=== PATIENT | female | born 1995 | race Two or more races ===

== ENCOUNTER 2019-11-23 16:29 | Emergency (ER) | payer OTHER ==
[~2019-11-23] VITALS: Ht 165.1 cm; Wt 61.8 kg
[2019-11-23 16:31] VITALS: BP 124/77
== END 2019-11-23 18:30 | disposition home or self-care (01) ==
LOC: EMS 16:31
DX: Z03.818 Encounter for observation for suspected exposure to other biological agents ruled out (principal)
CPT/HCPCS: 99283; U0003

== ENCOUNTER 2019-12-12 09:50 | Emergency (ER) | payer OTHER ==
[~2019-12-12] VITALS: Ht 165.1 cm; Wt 61.4 kg
[2019-12-12 09:51] VITALS: BP 125/83
== END 2019-12-12 10:53 | disposition home or self-care (01) ==
LOC: EMS 09:52
DX: Z03.818 Encounter for observation for suspected exposure to other biological agents ruled out (principal)
CPT/HCPCS: 99283; U0003